=== PATIENT | male | born 1950 | race Caucasian/White ===

== ENCOUNTER 2017-12-21 03:35 | Observation (INO) | payer BC, MEDICARE ==
[~2017-12-21] VITALS: Ht 177.8 cm; Wt 87.8 kg
--- NOTE | ~2017-12-21 | HEMODYNAMI ---
PATIENT:SANDRA SHRESTHA MEDICAL RECORD: [id number] : 48 [id number] ADMISSION DATE: 12/21/17 Generatedon:12/21/201712:31 Patient name: SANDRA SHRESTHA Patient #: [id number] SSN: : 1950 Date of study: 12/21/2017 Page: Of Hemodynamic Procedure Report Patient Data Patient Demographics Procedure consent was obtained First Name: SANDRA Gender: Male Last Name: HENRIETTA : 1950 Patient #: [id number] Age: 67 year(s) Race: Unknown Additional ID: [id number] Contact details Address: [address] [place] [address] State: [place] City: [place] Zip code: [address] Past Medical History Allergies: No known allergies Admission Admission Data Admission Date: 12/21/2017 Admission Time: 6:25 Room #: 2107 Lab Results Lab Result Date: 12/21/2017 Lab Result Time: 0:00 Biochemistry Name Units Result Min Max BUN mg/dl 28 --(----)-* 7 18 Creatinine mg/dl 1.4 --(----)*- 0.6 1.3 CBC Name Units Result Min Max Hemoglobin g/dl 13.3 -*(----)-- 13.5 17.5 Procedure Procedure Types Cath Procedure Diagnostic Procedure LHC LH w/Coronaries Sedation Charges Moderate Sedation up to 15 minutes PCI Procedure Coronary Stent Coronary Stent Initial Procedure Description Procedure Date Procedure Date: 12/21/2017 Procedure Start Time: 12:06 Procedure End Time: 12:25 Procedure Staff Name Function Mukesh Pantoja MD Performing Physician Viridiana Rainey RN Nurse Jyoti Nicole RT Scrub Elly Todd RT Monitor Procedure Data Cath Procedure Fluoroscopy Diagnostic fluoroscopy Total fluoroscopy Time: 5.7 time: 5.7 min min Diagnostic fluoroscopy Total fluoroscopy dose: 590 dose: 590 mGy mGy Contrast Material Contrast Material Type Amount (ml) Isovue 300 93 Entry Location Entry Primary Successful Side Size Upsize Upsize Entry Closure Velazquez ccessful Closure Location (Fr) 1 (Fr) 2 (Fr) Remarks Device Remarks Radial Right 6 Fr Mechanical TR band artery Short Compression Estimated blood loss: 10 ml Diagnostic catheters Device Type Used For End Catheter Placement DIAGNOSTIC [place] 110cm 5 Procedure Fr catheter ([id number]) DIAGNOSTIC Pigtail 5Fr Ventriculography catheter ([id number]) Procedure Complications No complications Procedure Medications Medication Administration Route Dosage Oxygen NC 2 l/min Lidocaine 2% added to field 20 Heparin Flush Bag added to field 2 bags (1000units/500ml NS) 0.9% NaCl I.V. 100 ml/hr Versed I.V. 1 mg Fentanyl I.V. 50 mcg Radial Cocktail I.A. 1 syringe (Verapomil 2mg/Nitro 400mcg/Heparin 1500units) Versed I.V. 1 mg Fentanyl I.V. 50 mcg Heparin Bolus I.V. 4000 units Integrilin (Bolus I.V. 7.9 ml 2mg/ml) Plavix P.O. 600 mg Hemodynamics Rest HGB: 13.3 (g/dl) Heart Rate: 54 (bpm) Pressure Samples Time Site Value (mmHg) Purpose Heart Use Rate(bpm) 12:21 LV 126/13,16 EDP 60 Gradients Valve Time Site Site Mean SEP/DFP Peak To Heart Use 1 2 (mmHg) (sec/min) Peak Rate (mmHg) (bpm) Aortic 12:22 LV AO 59 Snapshots Pre Cath Intra NCS Post Cath Vital Signs Time Heart Resp SPO2 etCO2 NIBP (mmHg) Rhythm Pain Sedation Rate (ipm) (%) (mmHg) Status Level (bpm) 11:58:21 50 17 96 33.1 141/70(106) NSR 0 (11) 10(A) , No pain 12:03:39 54 16 94 31.6 128/73(100) NSR 0 (11) 10(A) , No pain 12:08:19 55 15 95 28.6 126/67(89) NSR 0 (11) 10(A) , No pain 12:12:54 62 16 95 28.6 101/63(82) NSR 0 (11) 9(A) , No pain 12:18:07 56 15 95 23.3 130/62(96) NSR 0 (11) 9(A) , No pain 12:22:48 59 12 96 34.6 123/64(84) NSR 0 (11) 10(A) , No pain Medications Time Medication Route Dose Verified Delivered Reason Note s Effectiveness by by 11:52:25 Oxygen NC 2 l/min Mukesh Kemp used for [facility] Sandra Rainey RN procedure 11:52:34 Lidocaine 2% added 20ml Mukesh Mayorga for local to vial [facility] anesthetic field MD WYNN 11:52:41 Heparin Flush added 2 bags Mukesh Mayorga used for Bag to [facility] procedure (1000units/500ml field MD WYNN NS) 11:52:51 0.9% NaCl I.V. 100 Mukesh Kemp Per physician ml/hr St Sandra Rainey RN, MD 12:03:40 Versed I.V. 1 mg Mukesh Kemp for sedation St Sandra Rainey RN, MD 12:03:46 Fentanyl I.V. 50 mcg Mukesh Kemp for sedation St Sandra Rainey RN, MD 12:08:02 Radial Cocktail I.A. 1 Mukesh Mayorga for (Verapomil syringe [facility] vasodilation 2mg/Nitro MD WYNN 400mcg/Heparin 1500units) 12:08:08 Versed I.V. 1 mg Mukesh Kemp for sedation St Sandra Rainey RN, MD 12:08:12 Fentanyl I.V. 50 mcg Mukesh Kemp for sedation St Sandra Rainey RN, MD 12:14:47 Heparin Bolus I.V. 4000 Mukesh Kemp for veri fied units St Sandra Rainey RN anticoagulation with dr MD gottlieb 12:15:30 Integrilin I.V. 7.9 ml Mukesh Kemp for wast ed (Bolus 2mg/ml) St Sandra Rainey RN antiplatelet 2.1 ml therapy of vial 12:29:22 Plavix P.O. 600 mg Mukesh Kemp for [facility] Sandra Rainey RN antiplatelet therapy Procedure Log Time Note 11:34:55 Jyoti Nicole RT(R) sent for patient. Start room use. 11:34:56 Time tracking: Regular hours 11:35:01 Plan of Care:Hemodynamics will remain stable., Cardiac rhythm will remain stable., Comfort level will be maintained., Respiratory function will remain adequate., Patient/ family verbilizes understanding of procedure., Procedure tolerated without complication., Recovers from procedure without complications.. 11:47:13 Patient received from Med II to [facility] 1 Alert and oriented. Tansferred to table in Supine position. 11:47:14 Warm blankets applied, and haydee hugger turned on for patient comfort. 11:47:15 Correct patient and procedure confirmed by team. 11:47:17 Signed procedure consent form obtained from patient. 11:47:18 ECG and BP/O2 sat monitors applied to patient. 11:47:29 H&P Date Dictated: 12/20/2017 Within 30 days and on chart.. 11:47:32 Pre-procedure instructions explained to patient. 11:47:35 Family in patients room. 11:47:36 Patient NPO since Midnight. 11:47:44 Patient allergic to No known allergies 11:47:47 Is the patient allergic to Iodine/contrast media? No. 11:47:50 Was the patient premedicated? Yes 11:47:51 Is patient on blood thinner?No 11:47:53 Patient diabetic? No. 11:48:02 Snore? Yes 11:48:03 Sleep apnea? No 11:48:07 Airway obstruction? No ? 11:48:13 Dentures? No ? 11:48:19 Patient pain scale 1/10 ?. 11:48:29 IV patent on arrival in left forearm with [facility]. 11:48:38 Lab results completed and on chart. 11:48:44 Right Radial & Right Groin area was prepped with chlora-prep and draped in sterile fashion 11:48:46 Alarms reviewed by R. N. 11:48:46 Sharps counted by scrub and verified by R.N. 11:48:48 Physician paged 11:52:25 Oxygen 2 l/min NC was administered by Viridiana Rainey RN; used for procedure; 11:52:34 Lidocaine 2% 20ml vial added to field was administered by Mukesh Pantoja MD; for local anesthetic; 11:52:41 Heparin Flush Bag (1000units/500ml NS) 2 bags added to field was administered by Mukesh Pantoja MD; used for procedure; 11:52:51 0.9% NaCl 100 ml/hr I.V. was administered by Viridiana Rainey RN; Per physician; 11:57:24 Vital chart was started 11:57:28 Baseline sample Acquired. 11:57:34 Rhythm: sinus rhythm 11:57:45 Full Disclosure recording started 12:00:18 Lab Result : Hemoglobin 13.3 g/dl 12:00:18 Lab Result : Creatinine 1.4 mg/dl 12:00:18 Lab Result : BUN 28 mg/dl 12:00:58 Use device set Femoral Dx 12:01:22 Physician arrived 12::23 --------ALL STOP TIME OUT------ 12:01:25 Final Timeout: patient, procedure, and site verified with staff and physician. All members of the team are in agreement. 12:01:41 Right Radial & Right Groin site verified by team. 12:01:45 Physical assessment completed. ASA score P 2 - A patient with mild systemic disease as per Mukesh Pantoja MD. 12:01:49 Sedation plan: IV Moderate Sedation Medication:Versed, Fentanyl 12:03:40 Versed 1 mg I.V. was administered by Viridiana Rainey RN; for sedation; 12:03:46 Fentanyl 50 mcg I.V. was administered by Viridiana Rainey RN; for sedation; 12:03:59 ACIST Syringe (34289) opened to sterile field. 12:04:00 Bag Decanter (2002S) opened to sterile field. 12:04:01 Medline Cath Pack ([id number]) opened to sterile field. 12:04:03 DIAGNOSTIC WIRE .035 260cm J wire (613124) opened to sterile field. 12:04:05 ACIST Hand Control (20124) opened to sterile field. 12:04:06 ACIST Manifold (76718) opened to sterile field. 12:04:07 DIAGNOSTIC Multipack 5Fr catheter set (BT6379) opened to sterile field. 12:04:07 Tegaderm 4 x 4 (1626W) opened to sterile field. 12:05:10 SHEATH 6Fr Prelude Radial ([id number]) opened to sterile field. 12:06:33 Procedure started. 12:06:45 Local anesthetic to right radial artery with Lidocaine 2% by Mukesh Pantoja MD.INITIAL ACCESS ONLY 12:08:02 Radial Cocktail (Verapomil 2mg/Nitro 400mcg/Heparin 1500units) 1 syringe I.A. was administered by Mukesh Pantoja MD; for vasodilation; 12:08:08 Versed 1 mg I.V. was administered by Buffie Rainey RN; for sedation; 12:08: A DIAGNOSTIC [place] 110cm 5 Fr catheter ([id number]) was advanced over the wire and used for Procedure. 12:08:12 Fentanyl 50 mcg I.V. was administered by Viridiana Rainey RN; for sedation; 12::28 LCA angiography performed. 12::47 RCA angiography performed. 12:13:33 Catheter removed. 12:13:34 Proceeding to intervention. 12:14:23 WHISPER 300cm guide wire ([id number]) opened to sterile field. 12:14:24 GUIDE 6FR HS I catheter (LA6HSI) opened to sterile field. 12:14:25 INFLATOR Merit BasixCompak (SG0984) opened to sterile field. 12:14:42 6 Fr HS1 guide catheter was inserted over the wire 12::47 Heparin Bolus 4000 units I.V. was administered by Viridiana Rainey RN; for anticoagulation; verified with dr gottlieb 12:14:55 Whisper wire advanced. 12:15:30 Integrilin (Bolus 2mg/ml) 7.9 ml I.V. was administered by Viridiana Rainey RN; for antiplatelet therapy; wasted 2.1 ml of vial 12:15:30 Wire advanced across lesion. 12:18:41 Inflation Number: 1 A INTEGRITY OTW 4.0 X 18 stent ([id number]) was prepped and advanced across the Mid RCA. The stent was deployed at 14 RONALD for 0:30 (min:sec). 12:19:26 Wire removed. 12:19:27 Guide catheter removed. 12:19:42 A DIAGNOSTIC Pigtail 5Fr catheter ([id number]) was advanced over the wire and used for Ventriculography. 12:19:52 TR BAND Standard ([id number]) opened to sterile field. 12:19:56 LV angiography performed. 12:22:10 LV gram done using JUAN 12:22:15 EF : 55 % 12::18 Catheter removed. 12:22:35 A 6 Fr Short sheath was inserted into the Right Radial artery 12::52 Sheath removed intact; hemostasis achieved with Mechanical Compression to the Right Radial artery. 12:23:11 Procedure ended.(Physican Out) ::23 Fluoroscopy time 05.70 minutes. :: Fluoroscopy dose: 590 mGy 12::29 Flurop Dose total: 590 12::35 Contrast amount:Isovue 300 93ml. 12:23:36 Sharps counted by scrub and verified by R.N. 12::41 TR band inflated with 12cc of air. 12:23:43 Insertion/operative site no bleeding no hematoma. 12:23:50 Post right radial artery:stable 12:23:56 Post Procedure Pulses reassessed and unchanged 12:24:00 Post-procedure physical assessment completed. ASA score P 2 - A patient with mild systemic disease as per Mukesh Pantoja MD. 12:24:05 Post procedure rhythm: unchanged. 12:24:09 Estimated blood loss: 10 ml 12:24:11 Post procedure instruction explained to patient.Patient verbalizes understanding. 12::29 Procedure type changed to Cath procedure, Diagnostic procedure, LHC, LHC w/Coronaries, Sedation Charges, Moderate Sedation up to 15 minutes, PCI procedure, Coronary Stent, Coronary Stent Initial 12::51 Procedure and supply charges have been captured, reviewed, submitted and are correct. 12:25:19 Procedure Complication : No complications 12:: Vital chart was stopped 12:: See physician's report for complete and final results. 12:: Report given to [facility]. 12::28 Patient transfered to [facility] with Stretcher. ::31 Procedure ended. 12:: Full Disclosure recording stopped 12::34 End room use (Document Last) 12::30 ACC-PCI Only Patient was given prescriptions, or instructed by Mukesh Pantoja MD to start/continue the following medications upon discharge: Plavix 12:: Plavix 600 mg P.O. was administered by Viridiana Rainey RN; for antiplatelet therapy; Intervention Summary Intervention Notes Time ActionType Lesion and Equipment Action# Pressure Duration Attributes Used 12::41 Place stent Mid RCA INTEGRITY 1 14 00:30 OTW 4.0 X 18 stent ([id number]) Device Usage Item Name Manufacture Quantity Catalog Number Hospital Part Current M inimal Lot# / Charge Number Stock Stock Serial# Code ACIST Syringe Acist 1 42973 695996 447249 008626 2 0 () Medical [employer] Inc Bag Decanter Microtek 1 819141 02827 012647 5 () Medical Inc. Medline Cath Cardinal 1 [id number] 914321 81475 017304 5 Pack Health ([id number]) DIAGNOSTIC WIRE [facility] Augie 1 763818 518880 619669 456498 3 0 .035 260cm J wire (066056) ACIST Hand Acist 1 45245 135908 776147 630033 5 Control (37108) Medical Systems Inc ACIST Manifold Acist 1 22546 354539 020242 211927 5 (46882) Medical Systems Inc DIAGNOSTIC Cardinal 1 JW0904 100625 76777 069866 3 0 Multipack 5Fr Health catheter set ([id number]) Tegaderm 4 x 4 3M 1 1626W 495092 845539 561882 5 (1626W) SHEATH 6Fr Merit 1 [id number] 459970 296880 156480 5 Prelude Radial Medical ([id number]) DIAGNOSTIC Terumo 1 40-0823 353635 580918 596418 5 [place] 110cm 5 Fr catheter (017396) WHISPER 300cm [place] 1 [id number] 684612 377179 355272 5 guide wire Vascular ([id number]) GUIDE 6FR HS I Medtronic 1 LA6HSI 411502 86207 508609 1 catheter (LA6HSI) INFLATOR Merit Merit 1 FZ3573 706528 161941 687539 1 5 [facility] (TO0720[facility] INTEGRITY OTW Medtronic 1 [id number] 558053 481537 9 [id number] 4.0 X 18 stent ([id number]) DIAGNOSTIC Cardinal 1 [id number] 449670 074889 158979 5 Pigtail 5Fr Health catheter (568153H) TR BAND Terumo 1 [id number] 072488 411914 135665 4 0 Standard ([id number]) Signature Audit [place] Stage Time Signature Unsigned Intra-Procedure 12/21/2017 Elly Todd 12:31:18 PM RT(R) Signatures Monitor : Elly Todd Signature : RT Date : Time : [facility] [address] [place] [address]
--- NOTE | ~2017-12-21 | CN ---
PATIENT NAME:SANDRA SHRESTHA MEDICAL RECORD: [id number] : 48 LOCATION:. D.2107 ADMIT DATE: 12/21/17 ACCOUNT: [id number] CONSULTING PHYSICIAN: SWATI CHRISTIANSEN MD REFERRING PHYSICIAN: AYAKA MACEDO DO DATE OF CONSULTATION: 12/21/2017 HISTORY OF PRESENT ILLNESS: A 67-year-old gentleman with no known history of coronary artery disease, has a history of hypertension, recently URI. Woke up with chest pain this morning, radiation to left arm, and breathlessness. No nausea. No diaphoresis. He was admitted. We are asked to see him for the above. PAST MEDICAL HISTORY: Includes; 1. History of hypertension. 2. Anxiety. ALLERGIES: PREDNISONE. MEDICATIONS: Typically include Mobic 15 every day, Xanax 2 mg every 12 hours, lisinopril 20 every day, Dee Dee 180 every day. SOCIAL HISTORY: . Lives here in [place]. Nonsmoker. Nondrinker. Easily takes care of his ADLs. REVIEW OF SYSTEMS: The patient reports easy bruising but reports no swollen glands. The patient reports no fever, no night sweats, no significant weight gain, no significant weight loss. No significant exercise tolerance. The patient reports no dry eyes, no irritation, no vision change. Patient reports no difficulty hearing and no ear pain. Patient reports no frequent nose bleeds or nose and sinus problems. Patient reports on arm pain on exertion. No shortness of breath while lying down. No history of heart murmur. Patient reports no cough, no wheezing or coughing up blood. Patient reports no abdominal pain, no vomiting. Normal appetite. No diarrhea and not vomiting blood. No nausea and no constipation. Patient reports no incontinence. No difficulty urinating. No hematuria. No increased frequency. Patient reports no muscle aches. No weakness, no arthralgias, no back pain. No swelling of the extremities. Patient reports no abnormal mole, no jaundice, no rashes. Reports no loss of consciousness. No weakness and no numbness. No seizures, dizziness, or headaches. The patient reports no depression, no sleep disturbance, feeling safe in a relationship and no alcohol abuse. Patient reports on fatigue. Reports no runny nose or sinus pressure. No itching, no hives, and no frequent sneezing. PHYSICAL EXAMINATION: GENERAL: Pleasant gentleman, in no acute distress. VITAL SIGNS: Blood pressure 114/73, pulse 56 and regular. HEENT: Normocephalic, atraumatic. NECK: No bruits. HEART: Regular. LUNGS: Lung cabrera are clear. ABDOMEN: Soft, nontender. EXTREMITIES: Pulses 2+. No edema. NEUROLOGIC: Grossly intact. CONSULT REPORT [id number] SANDRA SHRESTHA DIAGNOSTIC DATA: ECG showed minor nonspecific ST-T changes. IMPRESSION: Acute coronary syndrome. PLAN: Plan for angiography, intervention based on above. TRANSINT:[id number] Voice Confirmation ID: [id number] DOCUMENT ID: [id number] SWATI CHRISTIANSEN MD at 0846 CC: [id number] DICTATION DATE: 12/21/1746 SCHOOL CROSSING GUARD: 12/21/17 1123 DIS IN 12/22/17 [facility] [address] [place] [address]
--- NOTE | ~2017-12-21 | OP ---
PATIENT NAME: SANDRA SHRESTHA MEDICAL RECORD: [id number] :48 LOCATION:D.M2 D.2107 ADMISSION DATE:12/21/17 SURGEON: SWATI CHRISTIANSEN MD DATE OF OPERATION: 12/21/2017 PROCEDURE: Left heart catheterization, selective coronary angiography, PTCA stent, right radial approach. CATHETERS: A radial sheath, [place] catheter, diagnostic hockey stick for guide. The procedure was tolerated. The patient returned to the [place]. Sheath removed. TR band was placed. FINDINGS: Left ventriculography in 30-degree JUAN view: Mild inferior hypo, but overall LV function preserved at 50% or better. CORONARY ANATOMY: LEFT MAIN: Left main is free of disease. 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 CIRCUMFLEX: Circumflex shows some mild disease, no obstructive stenosis. RIGHT CORONARY ARTERY: Has a diffuse 80% stenosis in its mid portion. DESCRIPTION OF PROCEDURE: Using indwelling sheath, a hockey stick guide catheter was placed around the coronary ostium without difficulty, followed by a 300 cm Whisper wire was placed across the 80% stenosis to right down this portion of vessel. Stent deployed was a 4.0 x 18 mm Integrity nondrug-eluting stent up to 14 atmospheres. Final injection shows excellent resolution of 80% diffuse stenosis, no significant residual. LEILA flow was 3 throughout the procedure. Integrilin was used in the case. Sheath closed with TR band. TRANSINT:[id number] Voice Confirmation ID: [id number] DOCUMENT ID: [id number] SWATI CHRISTIANSEN MD at 0846 CC: [id number] DICTATION DATE: 12/21/17 1230 BUSINESS SOLUTIONS CONSULTANT: 12/21/17 1331 DIS IN 12/22/17 [place] [id number] [place] [id number]
[2017-12-21 03:55] LABS: BASOPHILS 0.3 % (0-2); EOSINOPHILS 6.1 % (0-7); HEMATOCRIT 38.6 % (42.0-54.0); HEMOGLOBIN 13.3 g/dL (13.5-17.5); IMMATURE GRANULOCYTES 0.3 % (0-5); LYMPHOCYTES 31.3 % (15-50); MCH 31.7 pg (26.0-34.0); MCHC 34.5 g/dL (31.0-37.0); MCV 91.9 fL (80.0-100.0); MEAN PLATELET VOLUME 10.1 fL (7.4-10.4); MONOCYTES 10.8 % (2-11); NEUTROPHILS 51.2 % (40-80); PLATELET COUNT 138 10x3/uL (130-400); RDW 12.9 % (11.5-14.5); WBC 3.8 10x3/uL (4.8-10.8)
[2017-12-21 04:14] LABS: ALBUMIN 3.7 g/dL (3.4-5.0); ALKALINE PHOSPHATASE 47 U/L (46-116); ALT (SGPT) 28 U/L (10-68); BILIRUBIN - TOTAL 0.46 mg/dL (0.2-1.3); CALC OSMOLALITY 286 mosm/kg (275-300); CALCIUM 8.5 mg/dL (8.5-10.1); CARBON DIOXIDE 26.5 mmol/L (21.0-32.0); CHLORIDE - SERUM 106 mmol/L (98-107); CREATININE - SERUM 1.4 mg/dL (0.6-1.3); GLUCOSE 97 mg/dL (74-106); POTASSIUM - SERUM 3.8 mmol/L (3.5-5.1); PROTEIN - SERUM 6.8 g/dL (6.4-8.2); SODIUM 141 mmol/L (136-145); UREA NITROGEN 28 mg/dL (7-18); eGFR NON AFRICAN AMERICAN 53 mL/min (90-120)
[2017-12-21 04:20] LABS: CHOL - HDL RATIO 4.1 ratio (2.3-4.9); CHOLESTEROL, TOTAL 160 mg/dL (0-200); CKMB 1.5 U/L (0.0-3.6); CREATINE KINASE 118 UL (21-232); HDL CHOLESTEROL 39 mg/dL (32-96); LDL CHOLESTEROL 97 mg/dL (0-100); LDL-HDL RATIO 2.5 ratio (1.5-3.5); TRIGLYCERIDE 122 mg/dL (30-200); TROPONIN-I 0.058 ng/mL (0.000-0.060)
[2017-12-21] MEDS ORDERED: TYLENOL W/CODEI1 TAB (07:39)
[2017-12-21] MEDS ORDERED: MOBIC7.5 MG PO (07:39)
[2017-12-21] MEDS ORDERED: XANAX2 MG PO (07:41)
[2017-12-21] MEDS ORDERED: VITAMIN D31000 UNIT PO (07:43)
[2017-12-21] MEDS ORDERED: FEXOFENADINE H180 MG PO (07:43)
[2017-12-21] MEDS ORDERED: VITAMIN E1000 UNI1 PO (07:44)
[2017-12-21] MEDS ORDERED: VITAMIN C1000 MG PO (07:45)
[2017-12-21] MEDS ORDERED: MAG-OXIDE400 MG PO (07:45)
[2017-12-21] MEDS ORDERED: MELATONIN 3 MG1 TAB PO (07:46)
[2017-12-21] MEDS ORDERED: MULTIPLE VITAMI1 TA1 PO (07:49)
[2017-12-21] MEDS ORDERED: PRINIVIL20 MG PO (07:49)
[2017-12-21 07:52] LABS: CKMB 1.4 U/L (0.0-3.6); CREATINE KINASE 104 UL (21-232); TROPONIN-I 0.051 ng/mL (0.000-0.060)
[2017-12-21 08:14] VITALS: BP 114/73; Ht 177.8 cm; Wt 87.8 kg
[2017-12-21 09:16] LABS: ANION GAP 13.9 mmol/L (8-16); CALCIUM 8.6 mg/dL (8.5-10.1); CARBON DIOXIDE 25.3 mmol/L (21.0-32.0); CREATININE - SERUM 1.2 mg/dL (0.6-1.3); POTASSIUM - SERUM 4.2 mmol/L (3.5-5.1)
[2017-12-21 09:19] VITALS: BP 114/73
[2017-12-21 10:08] LABS: BASOPHILS 0.7 % (0-2); HEMATOCRIT 39.6 % (42.0-54.0); HEMOGLOBIN 13.6 g/dL (13.5-17.5); MCH 31.6 pg (26.0-34.0); MCHC 34.3 g/dL (31.0-37.0); MCV 91.9 fL (80.0-100.0); MONOCYTES 10.7 % (2-11); NEUTROPHILS 51.6 % (40-80); PLATELET COUNT 142 10x3/uL (130-400); RBC 4.31 10x6/uL (4.20-6.10); RDW 12.9 % (11.5-14.5)
[2017-12-21 13:05] VITALS: BP 122/47
[2017-12-21 16:14] VITALS: BP 140/65
[2017-12-21 20:00] VITALS: BP 126/54
[2017-12-22 04:00] VITALS: BP 147/73
[2017-12-22 05:21] LABS: BASOPHILS 0.1 % (0-2); EOSINOPHILS 0.7 % (0-7); HEMATOCRIT 37.9 % (42.0-54.0); HEMOGLOBIN 13.1 g/dL (13.5-17.5); IMMATURE GRANULOCYTES 0.1 % (0-5); LYMPHOCYTES 8.8 % (15-50); MCH 31.3 pg (26.0-34.0); MCHC 34.6 g/dL (31.0-37.0); MCV 90.7 fL (80.0-100.0); MEAN PLATELET VOLUME 11.2 fL (7.4-10.4); MONOCYTES 5.6 % (2-11); NEUTROPHILS 84.7 % (40-80); PLATELET COUNT 151 10x3/uL (130-400); RBC 4.18 10x6/uL (4.20-6.10); RDW 12.8 % (11.5-14.5)
[2017-12-22 05:22] LABS: WBC 8.4 10x3/uL (4.8-10.8)
[2017-12-22 05:46] LABS: ALBUMIN 3.5 g/dL (3.4-5.0); ALKALINE PHOSPHATASE 43 U/L (46-116); ALT (SGPT) 23 U/L (10-68); CALC OSMOLALITY 284 mosm/kg (275-300); CALCIUM 8.3 mg/dL (8.5-10.1); CHLORIDE - SERUM 108 mmol/L (98-107); CREATININE - SERUM 0.9 mg/dL (0.6-1.3); GLUCOSE 95 mg/dL (74-106); POTASSIUM - SERUM 3.7 mmol/L (3.5-5.1); PROTEIN - SERUM 6.4 g/dL (6.4-8.2); SODIUM 142 mmol/L (136-145); eGFR NON AFRICAN AMERICAN 89 mL/min (90-120)
[2017-12-22 05:55] LABS: UREA NITROGEN 18 mg/dL (7-18)
[2017-12-22] MEDS ORDERED: PLAVIX75 MG PO (09:50)
[2017-12-22] MEDS ORDERED: LEXAPRO10 MG PO (09:50)
[2017-12-22 10:15] VITALS: BP 158/81
[2017-12-22 12:35] VITALS: BP 143/60
== END 2017-12-22 17:18 | disposition home or self-care (01) ==
LOC: D.ER 03:35 → OBSVTIME 06:25 → D.M2 06:25
PROVIDERS: Emergency Medicine; Family Medicine; Internal Medicine Interventional Cardiology
DX: I25.110 Atherosclerotic heart disease of native coronary artery with unstable angina pectoris (principal); I10 Essential (primary) hypertension; F41.9 Anxiety disorder, unspecified; Q24.5 Malformation of coronary vessels

== ENCOUNTER 2018-02-28 16:25 | Emergency (ER) | payer BC, MEDICARE ==
[2017-12-21 08:14] VITALS: BMI 27.7
[~2018-02-28 16:25] MED LIST: FEXOFENADINE H180 MG PO; LEXAPRO10 MG PO; MAG-OXIDE400 MG PO; MELATONIN 3 MG1 TAB PO; MOBIC7.5 MG PO; MULTIPLE VITAMI1 TA1 PO; PLAVIX75 MG PO; PRINIVIL20 MG PO; TYLENOL W/CODEI1 TAB; VITAMIN C1000 MG PO; VITAMIN D31000 UNIT PO; VITAMIN E1000 UNI1 PO; XANAX2 MG PO
[2018-02-28 18:09] LABS: BASOPHILS 0.3 % (0-2); EOSINOPHILS 2.3 % (0-7); HEMATOCRIT 37.6 % (42.0-54.0); IMMATURE GRANULOCYTES 0.3 % (0-5); LYMPHOCYTES 24.3 % (15-50); MCH 31.5 pg (26.0-34.0); MCHC 34.6 g/dL (31.0-37.0); MEAN PLATELET VOLUME 10.5 fL (7.4-10.4); NEUTROPHILS 65.8 % (40-80); PLATELET COUNT 136 10x3/uL (130-400); RBC 4.13 10x6/uL (4.20-6.10); RDW 12.8 % (11.5-14.5)
[2018-02-28 18:35] LABS: ALBUMIN 3.6 g/dL (3.4-5.0); ALKALINE PHOSPHATASE 48 U/L (46-116); ALT (SGPT) 27 U/L (10-68); BILIRUBIN - TOTAL 0.52 mg/dL (0.2-1.3); CALC OSMOLALITY 286 mosm/kg (275-300); CALCIUM 8.7 mg/dL (8.5-10.1); CARBON DIOXIDE 27.4 mmol/L (21.0-32.0); CHLORIDE - SERUM 107 mmol/L (98-107); GLUCOSE 79 mg/dL (74-106); PROTEIN - SERUM 6.5 g/dL (6.4-8.2); SODIUM 143 mmol/L (136-145); UREA NITROGEN 20 mg/dL (7-18); eGFR NON AFRICAN AMERICAN 79 mL/min (90-120)
== END 2018-02-28 19:41 | disposition home or self-care (01) ==
LOC: D.ER 16:25
PROVIDERS: Physician Assistant
DX: R51 Headache (principal); I10 Essential (primary) hypertension; Z86.79 Personal history of other diseases of the circulatory system

== ENCOUNTER → 2018-10-15 06:37 | Outpatient (CLI) | payer BC, MEDICARE ==
[2017-12-21 08:14] VITALS: BMI 27.7
== END | disposition home or self-care (01) ==
LOC: D.US 06:37
DX: D72.819 Decreased white blood cell count, unspecified (principal); D69.6 Thrombocytopenia, unspecified

== ENCOUNTER → 2019-01-20 08:14 | Outpatient (CLI) | payer BC, MEDICARE ==
[2017-12-21 08:14] VITALS: BMI 27.7
--- NOTE | 2019-01-28 08:49 | EC ---
PATIENT:SANDRA SHRESTHA DATE OF SERVICE: 01/20/19 SEX: M MEDICAL RECORD: [id number] DATE OF : [birth year] [facility]ATION:[facility] AGE OF PATIENT: 68 ADMISSION DATE: 01/20/19 REFERRING PHYSICIAN: INTERPRETING PHYSICIAN: SWATI CHRISTIANSEN MD ECHOCARDIOGRAM REPORT ECHO CHARGES 4 ECHO COMPLETE Date: 01/20/19 CLINICAL DIAGNOSIS: CAD ECHOCARDIOGRAPHIC MEASUREMENTS (adult normal given) AC root (d.<3.7cm) 4.2 cm LV Septum d (<1.2 cm> 1.8 cm Valve Excursion 2.4 cm LV Septum (systole) 2.0 cm Left Atria (s.<4.0cm> 4.8 cm LVPW d(<1.2cm) 1.8 cm RV (d.<2.3cm) 4.8 cm LVPW (sytole) 2.1 cm LV diastole(<5.6CM) 4.4 cm MV E-F(>70mm/sec) cm LV systole 2.5 cm LVOT Diameter 2.3 cm MV exc.(>10mm) 1.4 cm Est.ejection fraction (50-75%) % DOPPLER: LVIT cm/sec A 60.0 cm/sec E 83.0 cm/sec LA cm/sec RVSP 46 mmHg LVOT 93 cm/sec AOP1/2T 553 m/s Asc. Ao 108 cm/sec RVOT 90 cm/sec RA cm/sec PA 113 cm/sec AV Gradient Peak 4.68 mmHg AV Mean 2.16 mmHg AV Area 4.8 cm MV Gradient Peak 3.92 mmHg MV Mean 1.17 mmHg MV Area cm COMMENTS: Stile Ripsaw Operator: Sotero KING Silk Presser: 3 Dr. Cruz TAPE# PACS Pericardial Effusion N DATE OF SERVICE: 01/20/2019 Adequate 2-D echo, color-flow and spectral Doppler, and M-mode. LVH is present. LV dimensions are normal. Wall motion is normal. EF is greater than or equal to 55%. Aortic valve is tricuspid. No evidence of stenosis by Doppler interrogation. There is mild AI by color-flow imaging. Left atrium is dilated at 4.8 cm. Mitral valve shows no prolapse. Mild MR. Right-sided chambers are grossly normal. Mild TR. ECHOCARDIOGRAM REPORT [id number] SANDRA SHRESTHA JR TRANSINT:[id number] Voice Confirmation ID: [id number] DOCUMENT ID: [id number] SWATI CHRISTIANSEN MD at 0849 CC: [id number] DICTATION DATE: 01/23/19 143 ELECTRIC MOTOR REBUILDER: 01/23/19 1845 DEP CLI 01/20/19 [place] [id number] [place] [id number]
== END | disposition home or self-care (01) ==
LOC: D.HCCARDIO 08:14
PROVIDERS: ATTEND Internal Medicine Interventional Cardiology
DX: I25.10 Atherosclerotic heart disease of native coronary artery without angina pectoris (principal)

== ENCOUNTER → 2020-02-10 09:18 | Outpatient (CLI) | payer OTHER ==
[2017-12-21 08:14] VITALS: BMI 27.7
--- NOTE | 2020-02-11 08:24 | EC ---
PATIENT:SANDRA SHRESTHA JR DATE OF SERVICE: 02/10/20 SEX: M MEDICAL RECORD: [id number] DATE OF : [birth year] LOCATION:[facility] AGE OF PATIENT: 69 ADMISSION DATE: 02/10/20 REFERRING PHYSICIAN: INTERPRETING PHYSICIAN: SWATI CHRISTIANSEN MD ECHOCARDIOGRAM REPORT ECHO CHARGES 4 ECHO COMPLETE Date: 02/10/20 CLINICAL DIAGNOSIS: DYSPNEA H/O CAD/HTN ECHOCARDIOGRAPHIC MEASUREMENTS (adult normal given) AC root (d.<3.7cm) 3.9 cm LV Septum d (<1.2 cm> 1.4 cm Valve Excursion 2.7 cm LV Septum (systole) 2.2 cm Left Atria (s.<4.0cm> 4.7 cm LVPW d(<1.2cm) 1.5 cm RV (d.<2.3cm) 2.7 cm LVPW (sytole) 1.9 cm LV diastole(<5.6CM) 4.6 cm MV E-F(>70mm/sec) cm LV systole 2.6 cm LVOT Diameter 2.1 cm MV exc.(>10mm) cm Est.ejection fraction (50-75%) % DOPPLER: LVIT cm/sec A 47.0 cm/sec E 77.0 cm/sec LA cm/sec RVSP 26.0 mmHg LVOT 93.0 cm/sec AOP1/2T m/s Asc. Ao 105 cm/sec RVOT 72.0 cm/sec RA cm/sec PA 84.0 cm/sec AV Gradient Peak 4.4 mmHg AV Mean 2.1 mmHg AV Area 3.2 cm MV Gradient Peak 2.7 mmHg MV Mean 0.69 mmHg MV Area cm COMMENTS: OP - HC Nickel Plant Operator: 1 ITZ MONICA Air Defense Specialist: 3 Dr. Cruz TAPE# PACS Pericardial Effusion N DATE OF SERVICE: Adequate 2D, color flow imaging, spectral Doppler, and M-Mode. LVH is present. LV internal dimensions are normal. Wall motion is normal. EF is greater than or equal to 55%. Aortic valve is tricuspid. No evidence of stenosis by Doppler interrogation. Left atrium is dilated at 4.7 cm. Mitral valve shows no prolapse. Trace MR. Right-sided chambers are grossly normal. Trace TR. ECHOCARDIOGRAM REPORT [id number] SANDRA SHRESTHA TRANSINT:[id number] Voice Confirmation ID: [id number] DOCUMENT ID: [id number] SWATI CHRISTIANSEN MD at 0824 CC: [id number] DICTATION DATE: 02/10/20 1458 POSTAL TRANSPORTATION CLERK: 02/10/20 2140 [facility] CLI 02/10/20 [place] [id number] [place] [id number]
== END | disposition home or self-care (01) ==
LOC: D.HCCECHO 09:00
PROVIDERS: ATTEND Internal Medicine Interventional Cardiology
DX: I10 Essential (primary) hypertension (principal)